=== PATIENT | female | born 1955 | race African-American/Black ===

== ENCOUNTER → 2016-09-11 | Outpatient (CLI) | payer BC ==
[2015-05-12 09:56] VITALS: BP 126/71
[~2016-09-11] MED LIST: ALBU8.5H6 IH; BECL8.7A6 IH; BISA10SU2 RC; CALC300T5 PO; CYCL-331 PO; DOCU-109 PO; FLUT12AE IH; IPRA4AER IH; LATA2.5D2 OP; LISI1TAB5 PO; NORT50CA PO; OMEP40CA5 PO; OXYC-323 PO; TETR15DR3 OP; TRAZ-90 PO
--- NOTE | 2016-09-11 08:31 | RAD ---
DATE: 09/11/2016 EXAM: DIGITAL SCREEN BILAT W/CAD HISTORY: Bilateral screening mammogram COMPARISON: 08/08/2015, 08/06/2014, 01/03/2011. This study was interpreted with the benefit of Computerized Aided Detection (CAD). The breast parenchyma shows scattered fibroglandular densities. Breast parenchyma level B. FINDINGS: No suspicious mass, calcification or architectural distortion to suggest malignancy. Cardiac pacing device in the medial left breast posterior depth. IMPRESSION: No mammographic evidence to suggest malignancy. BI-RADS 1, negative. Recommend routine screening mammogram in 12 months. BI-RADS CATEGORY: 1 NEGATIVE RECOMMENDED FOLLOW-UP: 12M 12 MONTH FOLLOW-UP PQRS compliance statement: Patient information was entered into a reminder system with a target due date September 2017 for the next mammogram. Mammography is a sensitive method for finding small breast cancers, but it does not detect them all and is not a substitute for careful clinical examination. A negative mammogram does not negate a clinically suspicious finding and should not result in delay in biopsying a clinically suspicious abnormality. "Our facility is accredited by the [employer] Mammography Program."
== END | disposition home or self-care (01) ==
LOC: MAMMO 07:55
PROVIDERS: ATTEND Specialist
DX: Z12.31 Encounter for screening mammogram for malignant neoplasm of breast (principal)
CPT/HCPCS: G0202; 77067

== ENCOUNTER 2019-02-07 21:47 | Emergency (ER) | payer BC ==
[~2019-02-07] VITALS: Ht 154.9 cm; Wt 75.7 kg
[~2019-02-07 21:47] MED LIST changes: -BISA10SU2 RC; +BISA10SU4 RC; +LISI1TAB19 PO; -LISI1TAB5 PO; +OMEP40CA45 PO; -OMEP40CA5 PO; -OXYC-323 PO; +OXYC1TAB15 PO; +TRAZ-86 PO; -TRAZ-90 PO
[2019-02-07] MEDS ORDERED: DOXY100C2 PO (22:12)
[2019-02-07] MEDS ORDERED: LATA2.5D2 OP (22:12)
[2019-02-07] MEDS ORDERED: AZMANEX (22:12)
[2019-02-07] MEDS ORDERED: MONT10TA80 PO (22:12)
--- NOTE | 2019-02-07 22:19 | PHYS DOC ---
Past History Past Medical History: Asthma, Fibromyalgia, Glaucoma, Hypertension, Other Past Surgical History: Hysterectomy Smoking: Non-smoker Alcohol Use: None Drug Use: None Adult General Chief Complaint Chief Complaint: GROIN PAIN [facility] HPI 63-year-old female presents with sudden onset left upper thigh/groin pain. The patient was sitting down about to take a breathing treatment for her bronchitis diagnosis when she began have a cramping pain in the left medial, upper thigh. She didn't think it was a big deal except that this pain has persisted for the last 6 hours. She tried Tylenol at home without relief. She denies any injury, fall, or overuse. She is less active than normal this week due to her bronchitis. She denies any other symptoms other than the discomfort. It is tender to palpation. Patient has a history of unprovoked PE a few years ago. She is not currently on any anticoagulation or antiplatelet. Review of Systems Review of Systems Constitutional: Denies fever or chills [] Eyes: Denies change in visual acuity, redness, or eye pain [] HENT: Denies nasal congestion or sore throat [] Respiratory: Denies cough or shortness of breath [] Cardiovascular: No additional information not addressed in HPI [] GI: Denies abdominal pain, nausea, vomiting, bloody stools or diarrhea [] : Denies dysuria or hematuria [] Musculoskeletal: Left groin pain[] Integument: Denies rash or skin lesions [] Neurologic: Denies headache, focal weakness or sensory changes [] Endocrine: Denies polyuria or polydipsia [] All other systems were reviewed and found to be within normal limits, except as documented in this note. Allergies Allergies Allergies Coded Allergies Type Severity Reaction Last Updated Verified Dcbdzfi-Xcb-Rtl Reductase Inhibitor Allergy Intermediate "muscle pain, cramping, & weakness" 02/07/19 Yes morphine Adverse Reaction Mild vomiting 02/07/19 Yes Physical Exam Physical Exam Constitutional: Well developed, well nourished, no acute distress, non-toxic appearance. [] HENT: Normocephalic, atraumatic, bilateral external ears normal, oropharynx moist, no oral exudates, nose normal. [] Eyes: PERRLA, EOMI, conjunctiva normal, no discharge. [] Neck: Normal range of motion, no tenderness, supple, no stridor. [] Cardiovascular:Heart rate regular rhythm, no murmur [] Lungs & Thorax: Bilateral breath sounds clear to auscultation [] Abdomen: Bowel sounds normal, soft, no tenderness, no masses, no pulsatile masses. [] Skin: Warm, dry, no erythema, no rash. [] Back: No tenderness, no CVA tenderness. [] Extremities: There is to palpation of the left, upper, medial thigh area. No obvious palpable mass. No skin changes. No erythema or ecchymosis.[] Neurologic: Alert and oriented X 3, normal motor function, normal sensory function, no focal deficits noted. [] Psychologic: Affect normal, judgement normal, mood normal. [] EKG EKG [] Radiology/Procedures Radiology/Procedures [] Impressions: Examination: VENOUS LOWER EXTREMITY LEFT History: Sudden onset left groin pain. History of pulmonary embolism. Comparison/Correlation: None FINDINGS: Left lower extremity duplex venous ultrasound exam was performed. Grayscale, color Doppler, and spectral Doppler imaging was performed. Compression and augmentation was performed. The left common femoral vein, superficial femoral vein, popliteal vein, and greater saphenous vein are normal with no evidence of deep venous thrombus. Normal compressibility and augmentation is evident. Visualized left calf veins are unremarkable. IMPRESSION: Normal left lower extremity duplex ultrasound exam. No evidence of deep venous thrombus involving the left lower extremity. Electronically signed by: Mick Mora MD (02/08/2019 12:08 AM) [id number] DICTATED AND SIGNED BY: MICK MORA MD DATE: 02/08/19 0008 CC: DOMO FITZGERALD DO; DONNA ARANDA MD ~ Course & Med Decision Making Course & Med Decision Making Pertinent Labs and Imaging studies reviewed. (See chart for details) The patient's labs are unremarkable. Her ultrasound is negative for DVT. There were no identified abnormalities by ultrasound in the area of question. Even though the patient can't think of any reason she would've strained a muscle, this seems most likely. I have advised supportive care and follow-up with her primary care physician if needed. She is stable for discharge at this time. [] Dragon Disclaimer Dragon Disclaimer This electronic medical record was generated, in whole or in part, using a voice recognition dictation system. Departure Departure: Impression: Primary Impression: Left groin pain Disposition: 01 HOME, SELF-CARE Condition: STABLE Referrals: DONNA ARANDA MD (PCP) Patient Instructions: DOMO Garcia DO Feb 07, 2019 22:19
[2019-02-08 00:03] LABS: BASO # 0.1 x10^3/uL (0.0-0.2); BASO % 1 % (0-3); EOS # 0.1 x10^3/uL (0.0-0.7); EOS % 2 % (0-3); HEMATOCRIT 34.4 % (36.0-47.0); HEMOGLOBIN 11.3 g/dL (12.0-15.5); LYMPH # 2.9 x10^3/uL (1.0-4.8); LYMPH % 47 % (24-48); MEAN CORPUSCULAR HEMOGLOBIN 28 pg (25-35); MEAN CORPUSCULAR HGB CONC 33 g/dL (31-37); MEAN CORPUSCULAR VOLUME 86 fL (79-100); MONO # 0.6 x10^3/uL (0.0-1.1); MONO % 9 % (0-9); NEUT # 2.6 x10^3uL (1.8-7.7); NEUT % 41 % (31-73); PLATELET COUNT 281 x10^3/uL (140-400); RED CELL DISTRIBUTION WIDTH 13.7 % (11.5-14.5); WHITE BLOOD COUNT 6.3 x10^3/uL (4.0-11.0)
[2019-02-08 00:09] LABS: CALCIUM 8.7 mg/dL (8.5-10.1); CREATININE 0.8 mg/dL (0.6-1.0); GFR 87.7; POTASSIUM 3.7 mmol/L (3.5-5.1)
--- NOTE | 2019-02-08 00:11 | RAD ---
Examination: VENOUS LOWER EXTREMITY LEFT History: Sudden onset left groin pain. History of pulmonary embolism. Comparison/Correlation: None FINDINGS: Left lower extremity duplex venous ultrasound exam was performed. Grayscale, color Doppler, and spectral Doppler imaging was performed. Compression and augmentation was performed. The left common femoral vein, superficial femoral vein, popliteal vein, and greater saphenous vein are normal with no evidence of deep venous thrombus. Normal compressibility and augmentation is evident. Visualized left calf veins are unremarkable. IMPRESSION: Normal left lower extremity duplex ultrasound exam. No evidence of deep venous thrombus involving the left lower extremity. Electronically signed by: Constantin Borges MD (02/08/2019 12:08 AM) [facility]
[2019-02-08 00:15] VITALS: BP 133/70
[2019-02-08 00:15] LABS: ALBUMIN 3.4 g/dL (3.4-5.0); ALBUMIN/GLOBULIN RATIO 0.9 (1.0-1.7); TOTAL BILIRUBIN 0.2 mg/dL (0.2-1.0); TOTAL PROTEIN 7.1 g/dL (6.4-8.2)
== END 2019-02-08 00:30 | disposition home or self-care (01) ==
LOC: ER 21:47
DX: R10.32 Left lower quadrant pain (principal); M79.652 Pain in left thigh; J45.909 Unspecified asthma, uncomplicated; M79.7 Fibromyalgia; I10 Essential (primary) hypertension; Z88.8 Allergy status to other drugs, medicaments and biological substances; Z88.5 Allergy status to narcotic agent
CPT/HCPCS: 36415; 80053; 85025; 85610; 85730; 93971; 99285

== ENCOUNTER → 2019-02-27 | Day surgery (SDC) | payer BC ==
[~2019-02-27] MED LIST changes: +ACETAMINOPHEN 325 MG TABLET PO PRN; +ALBU0.63 NEB; +ALBUTEROL SULFATE 2.5 MG/3 ML NEBU. NEB PRN; +ATROPINE 0.5 MG/5 ML DISP.SYRIN. IV PRN; +AZMANEX; +DOXY100C2 PO; +IV RINGERS SOLUTION,LACTATED 1,000 ML IV SCH; +MIDAZOLAM HCL PF 2 MG/2 ML VIAL. IV PRN; +MONT10TA80 PO; +ONDANSETRON PF 4 MG/2 ML VIAL. IV PRN; +PHENOL ORAL SPRAY 177ML BOTTLE. MM PRN; +PROPOFOL 40 ML IV ONE; +TRAZ-125 PO; -TRAZ-86 PO; +diphenhydrAMINE 50 MG/ML VIAL IV PRN
[2019-02-27 13:23] VITALS: BP 121/65
--- NOTE | 2019-03-03 16:06 | PATHOLOGY ---
[facility] Accession Number: [id number] . 01 Material submitted: . stomach - ANTRUM BIOPSY . 01 Clinical history: . Abdominal pain . 02 Diagnosis: Gastric biopsies, antrum: - Chronic gastritis, mild. . (JP:mm; 03/03/2019) [facility] 03/03/2019 1006 Local . 02 Comment: Sections of the gastric biopsy reveal segments of gastric antral and antral/body transition mucosa showing congestion and mild chronic inflammation. . A properly-controlled immunoperoxidase stain for Helicobacter is negative for Helicobacter organisms. . Special stain (A1): Immunoperoxidase stain for Helicobacter . (JPM:mml; 03/03/2019) . 02 Electronically signed: . Long Ruano MD, Pathologist NPI- [id number] . 01 Gross description: . The specimen is received in formalin, labeled "Jacqueline Dutta, antrum biopsy". Received are two segments of pale bhatt soft tissue ranging in size from 0.3 to 0.5 cm in maximum dimensions. The specimen is submitted entirely in cassette A1. ([facility]; 03/02/2019) [facility] 03/02/2019 1600 Local . 02 Pathologist provided ICD-10: K29.50 . 02 CPT . 566105, [id number] Specimen Comment: A courtesy copy of this report has been sent to [phone], [phone] Specimen Comment: [id number] Specimen Comment: Report sent to / DR ARANDA Performed at: 01 [facility] [address], [place], [place] [id number] MD Gopi Matamoros MD Phone: [phone] Performed at: 02 [facility] [address] [place], [place] [id number] MD Long Ruano MD Phone: [phone]
== END | disposition home or self-care (01) ==
LOC: SURG 10:10
PROVIDERS: ATTEND Internal Medicine Gastroenterology
DX: K21.0 Gastro-esophageal reflux disease with esophagitis (principal); K29.50 Unspecified chronic gastritis without bleeding; I10 Essential (primary) hypertension; J45.909 Unspecified asthma, uncomplicated; F41.9 Anxiety disorder, unspecified; Z87.39 Personal history of other diseases of the musculoskeletal system and connective tissue; Z90.710 Acquired absence of both cervix and uterus; Z90.49 Acquired absence of other specified parts of digestive tract; Z98.890 Other specified postprocedural states; Z88.8 Allergy status to other drugs, medicaments and biological substances; Z88.6 Allergy status to analgesic agent
CPT/HCPCS: 43239; 88305; 88342; J2704; J7120; 43450

== ENCOUNTER → 2019-03-05 | Outpatient (CLI) | payer BC ==
[2019-02-27 13:23] VITALS: BP 121/65
[~2019-03-05] MED LIST changes: -ACETAMINOPHEN 325 MG TABLET PO PRN; -ALBUTEROL SULFATE 2.5 MG/3 ML NEBU. NEB PRN; -ATROPINE 0.5 MG/5 ML DISP.SYRIN. IV PRN; -IV RINGERS SOLUTION,LACTATED 1,000 ML IV SCH; -MIDAZOLAM HCL PF 2 MG/2 ML VIAL. IV PRN; -ONDANSETRON PF 4 MG/2 ML VIAL. IV PRN; -PHENOL ORAL SPRAY 177ML BOTTLE. MM PRN; -PROPOFOL 40 ML IV ONE; -diphenhydrAMINE 50 MG/ML VIAL IV PRN
--- NOTE | 2019-03-05 08:38 | RAD ---
Complete abdominal ultrasound 03/05/2019 8:00 AM Indication: Abdominal pain Technique: Ultrasound examination of the abdomen was performed, and multiple static images were submitted for review. Comparison: Abdominal ultrasound July 09, 2013 Findings: The visualized portions of the pancreas are within normal limits. The visualized aorta and IVC are unremarkable. The gallbladder is surgically absent. The common bile duct measures 5 mm in diameter which is within normal limits. Liver is normal in size measuring 14 cm longitudinally. The liver is normal in echotexture. No intrahepatic biliary ductal dilatation is seen. No focal hepatic lesions are identified. The spleen is normal in appearance measuring 9 cm. Longitudinally The bilateral kidneys are normal in appearance without evidence of obstructive uropathy, nephrolithiasis, or focal renal lesion. Right kidney measures 8.7 cm in length. Left kidney measures 10.1 cm in length. Impression: 1. No sonographic evidence of acute intra-abdominal abnormality 2. Prior cholecystectomy Electronically signed by: Andrew Aguilar MD (03/05/2019 8:35 AM) [id number]
== END | disposition home or self-care (01) ==
LOC: US 07:42
PROVIDERS: ATTEND Internal Medicine Gastroenterology
DX: R10.13 Epigastric pain (principal); R11.0 Nausea; Z90.49 Acquired absence of other specified parts of digestive tract
CPT/HCPCS: 76700

== ENCOUNTER → 2019-10-14 | Outpatient (CLI) | payer BC ==
[2019-02-27 13:23] VITALS: BP 121/65
[~2019-10-14] MED LIST changes: -LISI1TAB19 PO; +LISI1TAB37 PO; -TETR15DR3 OP; +TETR15DR73 OP
--- NOTE | 2019-10-14 10:13 | RAD ---
Carotid doppler ultrasound History: Hypertension, dizziness, visual disturbance Multiple grayscale, color, and duplex spectral analysis waveform sonographic images were acquired of the carotid, subclavian, and vertebral arteries. Comparison: None Findings: RIGHT: PSV cm/sec EDV cm/sec Common carotid artery 67 20 Maximal internal carotid artery 156 44 External carotid artery 72 Vertebral artery 49 ICA/CCA ratio 2.3 LEFT: PSV cm/sec EDV cm/sec Common carotid artery 67 24 Maximum internal carotid artery 93 36 External carotid artery 59 Vertebral artery 104 ICA/CCA ratio 1.4 Velocities used to determine stenosis are known to correlate with NASCET angiographic criteria. There is antegrade flow in the bilateral vertebral arteries. There is mild plaque bilaterally. Impression: 1. Velocity elevation of the right internal carotid artery may be seen with 50-69% luminal diameter reduction, no evidence of a hemodynamically significant stenosis. There is mild plaque. Electronically signed by: Isaac Thompson MD (10/14/2019 10:10 AM) [id number]
--- NOTE | 2019-10-20 08:37 | RAD ---
DATE: 10/14/2019 9:05 AM EXAM: MAMMO KENNETH SCREENING BILATERAL HISTORY: Screening COMPARISON: 12/03/2018, 09/11/2016 Bilateral CC and MLO views of the breasts were performed. Bilateral breast tomosynthesis was performed in CC and MLO projections. This study was interpreted with the benefit of Computerized Aided Detection (CAD). FINDINGS: Breast Density: SCATTERED The breast parenchyma shows scattered fibroglandular densities. Breast parenchyma level B Event monitor in the medial left breast is redemonstrated. No suspicious masses, microcalcifications or architectural distortion is present to suggest malignancy in either breast. The visualized axillae are unremarkable. IMPRESSION: No mammographic evidence of malignancy. BI-RADS CATEGORY: 1 NEGATIVE RECOMMENDED FOLLOW-UP: 12M 12 MONTH FOLLOW-UP Annual screening mammography is recommended, unless clinically indicated sooner based on symptoms or change in physical exam. PQRS compliance statement: Patient information was entered into a reminder system with a target due date for the next mammogram. Mammography is a sensitive method for finding small breast cancers, but it does not detect them all and is not a substitute for careful clinical examination. A negative mammogram does not negate a clinically suspicious finding and should not result in delay in biopsying a clinically suspicious abnormality. "Our facility is accredited by the [employer] Mammography Program."
== END ==
LOC: MAMMO 09:04
PROVIDERS: ATTEND Specialist
DX: Z12.31 Encounter for screening mammogram for malignant neoplasm of breast (principal); H53.8 Other visual disturbances; I67.2 Cerebral atherosclerosis
CPT/HCPCS: 77063; 77067; 93880

== ENCOUNTER 2019-11-10 21:19 | Emergency (ER) | payer BC ==
[~2019-11-10] VITALS: Ht 154.9 cm; Wt 75.7 kg
[2019-11-10 21:25] VITALS: BP 167/71
[2019-11-10 22:20] LABS: BASO # 0.1 x10^3/uL (0.0-0.2); BASO % 1 % (0-3); EOS # 0.2 x10^3/uL (0.0-0.7); EOS % 2 % (0-3); HEMOGLOBIN 12.5 g/dL (12.0-15.5); LYMPH # 2.9 x10^3/uL (1.0-4.8); LYMPH % 40 % (24-48); MEAN CORPUSCULAR HEMOGLOBIN 29 pg (25-35); MEAN CORPUSCULAR HGB CONC 32 g/dL (31-37); MEAN CORPUSCULAR VOLUME 89 fL (79-100); MONO # 0.8 x10^3/uL (0.0-1.1); MONO % 11 % (0-9); NEUT # 3.4 x10^3uL (1.8-7.7); NEUT % 46 % (31-73); PLATELET COUNT 271 x10^3/uL (140-400); RED BLOOD COUNT 4.39 x10^6/uL (3.50-5.40); WHITE BLOOD COUNT 7.3 x10^3/uL (4.0-11.0)
--- NOTE | 2019-11-10 23:09 | EKG ---
[address] [address] Test Date: 2019-11-10 Test Time: 21:34:11 Pat Name: HENRIK MONTAGUE Department: Room: Gender: F [employer]: : 1955 Requested By: DOMO FITZGERALD Order Number: [id number] Reading MD: Pepe Faulkner Measurements Intervals [place] Rate: 79 P: 66 NH: 214 QRS: 67 QRSD: 84 T: 50 QT: 382 QTc: 444 Interpretive Statements SINUS RHYTHM NORMAL ECG Electronically Signed On 11-11-2019 12:24:32 CDT by Pepe Faulkner
[2019-11-10 23:10] LABS: CALCIUM 9.1 mg/dL (8.5-10.1); CREATININE 0.8 mg/dL (0.6-1.0); GFR 87.4; POTASSIUM 3.6 mmol/L (3.5-5.1)
[2019-11-10 23:17] LABS: ALBUMIN 3.7 g/dL (3.4-5.0); TOTAL BILIRUBIN 0.3 mg/dL (0.2-1.0); TOTAL PROTEIN 7.5 g/dL (6.4-8.2)
--- NOTE | 2019-11-11 00:21 | PHYS DOC ---
Past History Past Medical History: Fibromyalgia, Glaucoma, High Cholesterol, Hypertension Additional Past Medical Histor: gastroparesis Past Surgical History: Cholecystectomy, Hysterectomy, Other Additional Past Surgical Histo: LEFT EYE Smoking: Non-smoker Alcohol Use: Sober Drug Use: None General Adult EDM: Chief Complaint: Palpitations HPI: HPI: 64-year-old female presents with palpitations. She has been having palpitations intermittently for the last 3 days. They have been more persistent today and she was concerned so she came to the emergency room. She states that she has been feeling normal other than the palpitations. This evening she also developed some leg pain that she could not explain. It is her right lower leg. She denies fall or trauma. She denies fever or chills. The patient does not have any official diagnosis for these palpitations. Review of Systems: Review of Systems: Constitutional: Denies fever or chills Eyes: Denies change in visual acuity HENT: Denies nasal congestion or sore throat Respiratory: Denies cough or shortness of breath Cardiovascular: Palpitations. Denies chest pain or edema GI: Denies abdominal pain, nausea, vomiting, bloody stools or diarrhea : Denies dysuria Musculoskeletal: Right leg pain Integument: Denies rash Neurologic: Denies headache, focal weakness or sensory changes Endocrine: Denies polyuria or polydipsia Lymphatic: Denies swollen glands Psychiatric: Denies depression or anxiety Heart Score: Risk Factors: Risk Factors: DM, Current or recent (<one month) smoker, HTN, HLP, family history of CAD, obesity. Risk Scores: Score 0 - 3: 2.5% MACE over next 6 weeks - Discharge Home Score 4 - 6: 20.3% MACE over next 6 weeks - Admit for Clinical Observation Score 7 - 10: 72.7% MACE over next 6 weeks - Early Invasive Strategies Allergies: Allergies: Allergies Coded Allergies Type Severity Reaction Last Updated Verified Xqxyeux-Suq-Rlg Reductase Inhibitor Allergy Intermediate "muscle pain, cramping, & weakness" 02/07/19 Yes latex Allergy Mild itching, redness 02/27/19 Yes morphine Adverse Reaction Mild vomiting 02/07/19 Yes Physical Exam: PE: Constitutional: Well developed, well nourished, no acute distress, non-toxic appearance. [] HENT: Normocephalic, atraumatic, bilateral external ears normal, oropharynx moist, no oral exudates, nose normal. [] Eyes: PERRLA, EOMI, conjunctiva normal, no discharge. [] Neck: Normal range of motion, no tenderness, supple, no stridor. [] Cardiovascular: Heart rate regular rhythm, no murmur [] Lungs & Thorax: Bilateral breath sounds clear to auscultation [] Abdomen: Bowel sounds normal, soft, no tenderness, no masses, no pulsatile masses. [] Skin: Warm, dry, no erythema, no rash. [] Back: No tenderness, no CVA tenderness. [] Extremities: No tenderness, no cyanosis, no clubbing, ROM intact, no edema. [] Neurologic: Alert and oriented X 3, normal motor function, normal sensory function, no focal deficits noted. [] Psychologic: Affect normal, judgement normal, mood normal. [] Current Patient Data: Labs: Laboratory Tests Test 11/10/19 21:55 11/10/19 22:40 White Blood Count 7.3 x10^3/uL (4.0-11.0) Red Blood Count 4.39 x10^6/uL (3.50-5.40) Hemoglobin 12.5 g/dL (12.0-15.5) Hematocrit 39.0 % (36.0-47.0) Mean Corpuscular Volume 89 fL (79-100) Mean Corpuscular Hemoglobin 29 pg (25-35) Mean Corpuscular Hemoglobin Concent 32 g/dL (31-37) Red Cell Distribution Width 14.0 % (11.5-14.5) Platelet Count 271 x10^3/uL (140-400) Neutrophils (%) (Auto) 46 % (31-73) Lymphocytes (%) (Auto) 40 % (24-48) Monocytes (%) (Auto) 11 % (0-9) H Eosinophils (%) (Auto) 2 % (0-3) Basophils (%) (Auto) 1 % (0-3) Neutrophils # (Auto) 3.4 x10^3uL (1.8-7.7) Lymphocytes # (Auto) 2.9 x10^3/uL (1.0-4.8) Monocytes # (Auto) 0.8 x10^3/uL (0.0-1.1) Eosinophils # (Auto) 0.2 x10^3/uL (0.0-0.7) Basophils # (Auto) 0.1 x10^3/uL (0.0-0.2) Sodium Level 140 mmol/L (136-145) Potassium Level 3.6 mmol/L (3.5-5.1) Chloride Level 102 mmol/L (98-107) Carbon Dioxide Level 28 mmol/L (21-32) Anion Gap 10 (6-14) Blood Urea Nitrogen 22 mg/dL (7-20) H Creatinine 0.8 mg/dL (0.6-1.0) Estimated GFR (Cockcroft-Gault) 87.4 BUN/Creatinine Ratio 28 (6-20) H Glucose Level 115 mg/dL (70-99) H Calcium Level 9.1 mg/dL (8.5-10.1) Total Bilirubin 0.3 mg/dL (0.2-1.0) Aspartate Amino Transferase (AST) 27 U/L (15-37) Alanine Aminotransferase (ALT) 47 U/L (14-59) Alkaline Phosphatase 80 U/L (46-116) Troponin I Quantitative < 0.017 ng/mL (0-0.055) Total Protein 7.5 g/dL (6.4-8.2) Albumin 3.7 g/dL (3.4-5.0) Albumin/Globulin Ratio 1.0 (1.0-1.7) Vital Signs: Vital Signs Date Time Temp Pulse Resp B/P (MAP) Pulse Ox O2 Delivery O2 Flow Rate FiO2 11/10/19 21:25 98.4 72 20 167/71 (103) 99 Room Air EKG: EKG: [] Radiology/Procedures: Radiology/Procedures: [] Course & Med Decision Making: Course & Med Decision Making Pertinent Labs and Imaging studies reviewed. (See chart for details) The patient has had no further palpitations in the emergency room. Her labs are unremarkable. Her EKG is unremarkable. Her troponin is negative. I do not see any obvious cause for her leg pain. The patient is stable for discharge at this time. She will follow-up with her primary care physician as needed. [] Dragon Disclaimer: Dragon Disclaimer: This electronic medical record was generated, in whole or in part, using a voice recognition dictation system. Departure Departure: Impression: Primary Impression: Palpitations Additional Impression: Pain in right lower leg Disposition: HOME/RESIDENCE PRIOR TO ADM Condition: STABLE Referrals: DONNA ARANDA MD (PCP) Patient Instructions: Palpitations, [id number]-[id number] Justification of Admission: Justification of Admission: Justification of Admission Dx: N/A DOMO FITZGERALD DO Nov 11, 2019 00:21
--- NOTE | 2019-11-13 14:39 | NUR ---
IP: notified patient of COVID result.
== END 2019-11-11 00:35 | disposition home or self-care (01) ==
LOC: ER 21:19
DX: R00.2 Palpitations (principal); M79.604 Pain in right leg; M79.7 Fibromyalgia; E78.5 Hyperlipidemia, unspecified; I10 Essential (primary) hypertension; Z91.040 Latex allergy status; Z88.5 Allergy status to narcotic agent; Z88.8 Allergy status to other drugs, medicaments and biological substances; Z20.828 Contact with and (suspected) exposure to other viral communicable diseases
CPT/HCPCS: 36415; 80053; 84484; 85025; 93005; 99284; U0003

== ENCOUNTER 2020-01-13 08:43 | Inpatient (IN) | payer BC ==
[~2020-01-13] VITALS: Ht 154.9 cm; Wt 76.3 kg
[~2020-01-13 08:43] MED LIST changes: +LATA2.5D2 OU
--- NOTE | 2020-01-13 09:09 | PHYS DOC ---
Past History Past Medical History: Asthma, Fibromyalgia, Glaucoma, High Cholesterol, Hypertension Additional Past Medical Histor: gastroparesis Past Surgical History: Cholecystectomy, Hysterectomy, Other Additional Past Surgical Histo: LEFT EYE Smoking: Non-smoker Alcohol Use: None Drug Use: None General Adult EDM: Chief Complaint: CHEST PAIN HPI: HPI: Patient is a 64 year old female who presents with chest tightness for past 3 days. Reports palpitations, sweats, headache, left UE tightness. Denies pain, SOA, fever, dizziness. Patient states her pulse was 165 at home. PMH of hyperthyroidism in college, "electric cardioblock", "mild blockage in neck", fibromyalgia. Review of Systems: Review of Systems: Constitutional: Denies fever or chills Eyes: Denies redness or eye pain HENT: Denies nasal congestion or sore throat Respiratory: Denies cough or shortness of breath Cardiovascular: Denies chest pain. Reports palpitations, chest tightness. GI: Denies abdominal pain, nausea, or vomiting : Denies dysuria or hematuria Musculoskeletal: Denies back pain or joint pain Integument: Denies rash or skin lesions Neurologic: Denies headache, focal weakness or sensory changes Complete systems were reviewed and found to be within normal limits, except as documented in this note. This Current Medications: Current Meds: Current Medications Medications (Trade) Dose Ordered Sig/Puja Start Time Stop Time Status Last Admin Dose Admin Sodium Chloride 1,000 ml @ 1,000 mls/hr 1X ONCE 01/13/20 09:15 01/13/20 10:14 UNV Allergies: Allergies: Allergies Coded Allergies Type Severity Reaction Last Updated Verified Gdglscp-Mcf-Ulp Reductase Inhibitor Allergy Intermediate "muscle pain, cramping, & weakness" 02/07/19 Yes latex Allergy Mild itching, redness 02/27/19 Yes morphine Adverse Reaction Mild vomiting 02/07/19 Yes Physical Exam: PE: Constitutional: Well developed, well nourished, no acute distress, non-toxic appearance HENT: Normocephalic, atraumatic Eyes: Conjunctiva normal, no discharge Neck: Normal range of motion, no tenderness, supple Lungs & Thorax: No respiratory distress, equal chest rise and fall Abdomen: Soft, no tenderness Skin: Warm, dry, no erythema, no rash Back: No tenderness, no CVA tenderness Extremities: No tenderness, ROM intact, no edema Neurologic: Alert and oriented X 3, normal motor function, normal sensory fu nction, no focal deficits noted Psychologic: Affect normal, judgment normal Current Patient Data: Vital Signs: Vital Signs Date Time Temp Pulse Resp B/P (MAP) Pulse Ox O2 Delivery O2 Flow Rate FiO2 01/13/20 08:45 97.9 90 16 134/69 (90) 98 Room Air EKG: EKG: @0850 sinus tachycardia at 103 bpm, right bundle branch block, no ST segment elevation, QRS 120 ms, QT/QTc 356/468 ms. Radiology/Procedures: Radiology/Procedures: PROCEDURE: CHEST AP ONLY Single view of the chest. 01/13/2020 10:14 AM Indication: Reason: chest pain / Spl. Instructions: / History: Comparison: Chest radiograph January 16, 2015. Findings: Cardiac monitoring device noted. Heart size is normal no focal infiltrate is seen. There is an approximately 1 cm nodular opacity in the right midlung. This could be artifactual or related to true pulmonary nodule. Consider CT evaluation. No pneumothorax or effusion is seen. No acute osseous abnormalities are seen. Impression: . 1. Approximately 1 cm nodular opacity, right midlung. This could be artifactual represent a true pulmonary nodule. Follow-up CT chest recommended. 2. No other acute cardiopulmonary process is identified Electronically signed by: Andrew Aguilar MD (01/13/2020 10:46 AM) [id number] Heart Score: HEART Score for Chest Pain: HEART Score for Chest Pain Response (Comments) Value History Moderately Suspicious 1 ECG Normal 0 Age >45 - < 65 1 Risk Factors 1 or 2 Risk Factors 1 Troponin < Normal Limit 0 Total 3 Risk Factors: Risk Factors: DM, Current or recent (<one month) smoker, HTN, HLP, family history of CAD, obesity. Risk Scores: Score 0 - 3: 2.5% MACE over next 6 weeks - Discharge Home Score 4 - 6: 20.3% MACE over next 6 weeks - Admit for Clinical Observation Score 7 - 10: 72.7% MACE over next 6 weeks - Early Invasive Strategies Course & Med Decision Making: Course & Med Decision Making Patient is a 64 year old female who presents with chest tightness for past 3 days. Reports palpitations, sweats, headache, left UE tightness. Heart score. Patient reports continued pain, therefore, patient requires observation admission. Pertinent Labs and Imaging studies reviewed. (See chart for details) Dragon Disclaimer: Dragon Disclaimer: This electronic medical record was generated, in whole or in part, using a voice recognition dictation system. Departure Departure: Impression: Primary Impression: Chest pain Qualified Codes: R07.9 - Chest pain, unspecified Disposition: 09 ADMITTED INPT THIS HOSP Admitting Physician: Nacho Harvey Condition: STABLE Referrals: DONNA ARANDA MD (PCP) NINOSKA WHITEHEAD DO Jan 13, 2020 09:09
--- NOTE | 2020-01-13 09:12 | EKG ---
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
[2020-01-13] MEDS ORDERED: IV NORMAL SALINE 1,000ML 1,000 ML IV ONE (09:15)
[2020-01-13 09:16] LABS: BASO # 0.1 x10^3/uL (0.0-0.2); BASO % 1 % (0-3); EOS # 0.2 x10^3/uL (0.0-0.7); EOS % 2 % (0-3); HEMATOCRIT 38.8 % (36.0-47.0); HEMOGLOBIN 12.7 g/dL (12.0-15.5); LYMPH # 2.6 x10^3/uL (1.0-4.8); LYMPH % 38 % (24-48); MEAN CORPUSCULAR HEMOGLOBIN 28 pg (25-35); MEAN CORPUSCULAR HGB CONC 33 g/dL (31-37); MEAN CORPUSCULAR VOLUME 87 fL (79-100); MONO # 0.7 x10^3/uL (0.0-1.1); MONO % 10 % (0-9); NEUT # 3.5 x10^3uL (1.8-7.7); NEUT % 50 % (31-73); PLATELET COUNT 312 x10^3/uL (140-400); RED BLOOD COUNT 4.45 x10^6/uL (3.50-5.40); RED CELL DISTRIBUTION WIDTH 13.6 % (11.5-14.5)
[2020-01-13 09:21] LABS: CREATININE 0.9 mg/dL (0.6-1.0); GFR 76.3; POTASSIUM 3.8 mmol/L (3.5-5.1)
[2020-01-13 09:37] LABS: ALBUMIN 3.8 g/dL (3.4-5.0); ALBUMIN/GLOBULIN RATIO 0.9 (1.0-1.7); MAGNESIUM 2.3 mg/dL (1.8-2.4); TOTAL BILIRUBIN 0.2 mg/dL (0.2-1.0); TOTAL PROTEIN 8.2 g/dL (6.4-8.2)
[2020-01-13] MEDS ORDERED: ASPIRIN ENTERIC COATED 325 MG TABLET.DR. PO ONE (09:45)
--- NOTE | 2020-01-13 10:49 | RAD ---
Single view of the chest. 01/13/2020 10:14 AM Indication: Reason: chest pain / Spl. Instructions: / History: Comparison: Chest radiograph January 16, 2015. Findings: Cardiac monitoring device noted. Heart size is normal no focal infiltrate is seen. There is an approximately 1 cm nodular opacity in the right midlung. This could be artifactual or related to true pulmonary nodule. Consider CT evaluation. No pneumothorax or effusion is seen. No acute osseous abnormalities are seen. Impression: . 1. Approximately 1 cm nodular opacity, right midlung. This could be artifactual represent a true pulmonary nodule. Follow-up CT chest recommended. 2. No other acute cardiopulmonary process is identified Electronically signed by: Andrew Aguilar MD (01/13/2020 10:46 AM) [id number]
--- NOTE | 2020-01-13 12:46 | NUR ---
ADMISSION NOTE-Pt arrives via cart with EMS from ED. She is A&O, moves independently from cart to bed. Tele initiated, VS assessed. Inventory completed by DIRECTOR OF MANUFACTURING OPERATIONS.
[2020-01-13 12:58] VITALS: BP 154/82
[2020-01-13 13:16] LABS: FREE T4 0.88 ng/dL (0.76-1.46); THYROID STIM HORMONE (TSH) 2.91 uIU/mL (0.358-3.740)
[2020-01-13 16:16] VITALS: BP 132/75
--- NOTE | 2020-01-13 16:34 | HP ---
ADMIT DATE: 01/13/2020 HISTORY OF PRESENT ILLNESS: The patient is a 64-year-old -Citizen Of [place] female patient who came to the Emergency Room with a complaint of chest pain that she describes as chest tightness that started about 3 days ago. She also reports palpitation, diaphoresis, headache and left upper extremity tightness. Denied any nausea or vomiting. Denied any shortness of breath. She stated that her heart rate was high, about 165 at home. She apparently awakened from sleep at 3:00 this morning because of the pain that she rated about 7/10; however, the pain waxes and wanes. She was extensively investigated in the Emergency Room, had had an EKG that showed that she was in sinus tachycardia with a heart rate of 103 beats per minute with right bundle-branch block; no ST segment elevation and QRS duration was 120 milliseconds and corrected QT interval was 468 milliseconds. She has had a chest x-ray, which showed approximately 1 cm nodular opacity in the right mid lung. This could be artifactual representing a true pulmonary nodule. Followup CT scan recommended. No other acute cardiopulmonary process identified. She has cardiac monitoring device noted; heart size is normal; no focal infiltrate is seen. There is an approximately 1 cm nodular opacity in the right mid lung; however, there is no pneumothorax or pleural effusion. She has had lab work, which showed that she has no leukocytosis and her first set of cardiac enzymes showed troponin to be less than 0.017. Her TSH was 2.910. Her free T4 was 0.88 ng/dL, which is well within normal range; however, free T3 was 2.11, which is below the lower limit of normal. The patient was admitted to do 2 more sets of cardiac enzymes, check her fasting lipid profile and consult the Cardiology team. PAST MEDICAL HISTORY: Significant for recurrent syncopal episode for which she has an event monitor. She has history of gastroparesis, hypertension, hyperlipidemia. Apparently, she has what seemed to be subacute thyroiditis, bronchial asthma and she has had also generalized osteoarthritis, fibromyalgia. She has had 2 stress tests before and underwent left heart catheterization in 2018 that apparently was normal. She was admitted for pneumonia in 2004, 2008 and 2011; however, she never required intubation and mechanical ventilation. PAST SURGICAL HISTORY: Significant for right tibial and fibular fractures, status post open reduction and internal fixation; total abdominal hysterectomy, bilateral salpingo-oophorectomy, enucleation of her left eye, cholecystectomy, esophagogastroduodenoscopy as well as colonoscopy. ALLERGIES: SHE IS ALLERGIC TO STATINS, LATEX AND MORPHINE. MEDICATIONS: She is currently on following medications: She is on albuterol sulfate 1 puff every 6 hours. She is also on nebulizer 4 times a day, lisinopril/hydrochlorothiazide 20/12.5 one tablet once a day, Singulair 10 mg once a day, latanoprost 1 drop to the right eye at bedtime. She is on omeprazole 40 mg daily and Asmanex inhaler. FAMILY HISTORY: She has 1 older brother that has coronary artery disease, status post coronary artery bypass graft surgery. Her sister is older and is known to have congestive heart failure, type 2 diabetes mellitus and chronic kidney disease. Her younger brother also has diabetes and what seems to be congestive heart failure. Her father at age of 65 due to complication of alcoholic liver cirrhosis. Mother at the age of 42 because of intracerebral hemorrhage. SOCIAL HISTORY: She is , has 1 son and 3 daughters. She never smoked, quit drinking alcohol about 7 years ago. She does not use any drugs. 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 REVIEW OF SYSTEMS: The patient has glaucoma and cataract in her right eye. She is blind in her left eye. She does have recurrent bouts of it. Denied any earache, tinnitus or sensorineural deafness. Denied any nosebleeds, stuffy nose or postnasal drip. Denied any sore throat, sore tongue, toothache, hoarseness of voice or difficulty swallowing. Does complain of nausea due to gastroparesis and she did that with clear liquid diet. Denied any diarrhea or constipation. Denied any hematemesis, melena, or hematochezia. Denied any dysuria, frequency or hematuria. Denied any shortness of breath, orthopnea or paroxysmal nocturnal dyspnea. Denied any cough, phlegm or hemoptysis. PHYSICAL EXAMINATION: GENERAL: On arrival to the Emergency Room, she apparently looked well and was clearly in no apparent respiratory distress. No pallor, jaundice or cyanosis. No lymphadenopathy, no thyromegaly. No jugular venous distention. No limb edema. VITAL SIGNS: Her heart rate was 90, blood pressure was 134/69, temperature was 97.9, respiratory rate was 16, and oxygen saturation was 98% on room air. HEAD, EYES, EARS, NOSE AND THROAT: Showed normocephalic, atraumatic. NECK: Supple. HEART: Normal first and second heart sounds with no gallop, rub or murmur. CHEST: Clear to auscultation. No crepitation or rhonchi. ABDOMEN: Distended, soft, nontender. 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 Otherwise, she is grossly intact. LABORATORY DATA: Her lab work on arrival showed a white cell count 7000, hemoglobin 12.7, hematocrit 38.8, MCV 87 and platelet count of 312,000 with normal manual differential. Her chemistry showed a serum sodium 137, potassium 3.8, chloride 101, bicarbonate 29, anion gap of 7, BUN 20, creatinine of 0.9, estimated GFR was 76 mL per minute. Her glucose 115, calcium was 9, magnesium was 2.3. Total bilirubin, AST, ALT, alkaline phosphatase were normal. Her troponin was less than 0.07 and her total protein 8.2, albumin was 3.8. Serum lipase was 150. TSH and free T4 were normal. Free T3 was slightly below the lower limit of normal. Her prothrombin time, INR as well as aPTT were normal. D-dimer was less than 0.19. Her chest x-ray showed approximately 1 cm nodular opacity, right mid lung. This could be artifactual, represents a true pulmonary nodule. No other acute cardiopulmonary process identified. ASSESSMENT AND PLAN: The patient was admitted with somewhat atypical chest pain. We will do 1 more set of cardiac enzyme, check her fasting lipid profile tomorrow morning and consult the Cardiology team for further evaluation and treatment. KARSON VIDAL MD DR: LD/krysten JOB#: [id number] / [id number]
[2020-01-13 19:49] VITALS: BP 119/80
[2020-01-13] MEDS ORDERED: ALBUTEROL SULFATE 8GM INHALER. IH PRN (20:15)
[2020-01-13] MEDS ORDERED: ALBUTEROL SULFATE 2.5 MG/3 ML NEBU. NEB PRN (20:30)
[2020-01-13] MEDS ORDERED: MONTELUKAST 10 MG TABLET. PO SCH (21:00)
[2020-01-13] MEDS ORDERED: LATANOPROST 0.005% OPHTH SOLUTION 2.5ML BOTTLE. OU SCH (21:00)
[2020-01-13 22:51] VITALS: BP 102/64
--- NOTE | 2020-01-14 03:26 | NUR ---
Pt reported continued chest tightness at beginning of shift, describes as band tightening across lower chest/upper abdomen, rates 4:10. PRN fentanyl given with good results. Pt able to rest comfortably through much of the night. Pt on telemetry, showing sinus rhythm with BBB. Rate in the 60's.
[2020-01-14 05:23] VITALS: BP 115/71
[2020-01-14 06:51] LABS: ALBUMIN 3.2 g/dL (3.4-5.0); ALBUMIN/GLOBULIN RATIO 0.9 (1.0-1.7); CALCIUM 8.3 mg/dL (8.5-10.1); CREATININE 0.7 mg/dL (0.6-1.0); GFR 101.9; POTASSIUM 3.9 mmol/L (3.5-5.1); TOTAL BILIRUBIN 0.2 mg/dL (0.2-1.0); TOTAL PROTEIN 6.9 g/dL (6.4-8.2)
--- NOTE | 2020-01-14 08:42 | PDOC2 ---
CARDIAC CONSULT DATE OF CONSULT DOS: DATE: 01/14/20 TIME: 08:38 REASON FOR CONSULT Reason for Consult Chest pain REFERRING PHYSICIAN Referring Physician Dr. Harvey SOURCE Source: Chart review, Patient HPI History of Present Illness This is a 64 yo female who presented secondary to chest and back pain. Patient reports having pressure in her mid back for the last 3 days. Pain radiates are to her front side. [place] slightly nauseated and noticed some palpitations so she came to the ED for further evaluation and treatment. Patient is feeling better this am and is wanting to go home. PAST MEDICAL HISTORY Cardiovascular: HTN, hyperipidemia, Other (syncope s/p ILR) CENTRAL NERVOUS SYSTEM: Periperal neuropathy GI: GERD Psych: Depression Musculoskeletal: Osteoarthritis Rheumatologic: Fibromyalgia PAST SURGICAL HISTORY Past Surgical History: Cataract Removal, Hysterectomy FAMILY HISTORY Family History: Heart Disease, Hypertension SOCIAL HISTORY Smoke: No ALCOHOL: none Drugs: None CURRENT MEDICATIONS Current Medications Current Medications Sodium Chloride 1,000 ml @ 1,000 mls/hr 1X ONCE IV Last administered on 01/13/20at 09:52; Start 01/13/20 at 09:15; Stop 01/13/20 at 10:14; Status DC Fentanyl Citrate (Fentanyl 2ml Vial) 50 mcg 1X ONCE IV Last administered on 01/13/20at 09:52; Start 01/13/20 at 09:45; Stop 01/13/20 at 09:48; Status DC Aspirin (Aspirin Enteric Coated) 325 mg 1X ONCE PO Last administered on 01/13/20at 09:51; Start 01/13/20 at 09:45; Stop 01/13/20 at 09:48; Status DC Fentanyl Citrate (Fentanyl 2ml Vial) 50 mcg PRN Q2HR PRN IVP PAIN Last administered on 01/13/20at 21:28; Start 01/13/20 at 11:00 Albuterol Sulfate (Ventolin Hfa Inhaler) 1 puff Q6HRS PRN IH WH; Start 01/13/20 at 20:15; Stop 01/13/20 at 20:24; Status DC Latanoprost (Xalatan) 1 drop QHS OU Last administered on 01/13/20at 21:19; Start 01/13/20 at 21:00 Montelukast Sodium (Singulair) 10 mg HS PO Last administered on 01/13/20at 21:19; Start 01/13/20 at 21:00 Albuterol Sulfate (Ventolin) 2.5 mg PRN Q6HRS PRN NEB SHORTNESS OF BREATH Last administered on 01/14/20at 06:17; Start 01/13/20 at 20:30 Non-Formulary Medication (Lisinopril/ Hydrochlorothiazide (Lisinopril-Hctz 20- 12.5 Mg Tab)) 1 each DAILY PO ; Start 01/14/20 at 09:00; Status UNV Non-Formulary Medication (Omeprazole ) 40 mg DAILY PO ; Start 01/14/20 at 09:00; Status UNV Active Scripts Active Reported Albuterol Sulfate Neb Soln (Albuterol Sulfate) 0.63 Mg/3 Ml Vial.neb 1 Vial NEB QID [azmanex] Montelukast Sodium Tablet (Montelukast Sodium) 10 Mg Tablet 10 Mg PO HS Xalatan (Latanoprost) 2.5 Ml Drops 1 Drop OU QHS Omeprazole 40 Mg Capsule.dr 40 Mg PO DAILY Albuterol Sulfate Hfa Inhaler (Albuterol Sulfate) 8.5 Gm Hfa.aer.ad 1 Puff IH Q6HRS PRN Lisinopril-Hctz 20-12.5 Mg Tab (Lisinopril/Hydrochlorothiazide) 1 Each Tablet 1 Each PO DAILY ALLERGIES Allergies: Coded Allergies: Nsmhbah-Rko-Krr Reductase Inhibitor (Verified Allergy, Intermediate, "muscle pain, cramping, & weakness", 02/07/19) latex (Verified Allergy, Mild, itching, redness, 02/27/19) morphine (Verified Adverse Reaction, Mild, vomiting, 02/07/19) "It makes me vomit really bad, so I need a lot of nausea medicine." ROS Review of Systems 14 point ROS conducted with pertinent positives noted above in hPI PHYSICAL EXAM General: Alert, Oriented X3, Cooperative, No acute distress HEENT: Atraumatic, Mucous membr. moist/pink Lungs: Clear to auscultation Heart: Regular rate, Normal S1, Normal S2 Abdomen: Soft, No tenderness Extremities: No edema, Normal pulses Skin: No rashes, No breakdown Neuro: Normal speech, Sensation intact Psych/Mental Status: Mental status NL, Mood NL MUSCULOSKELETAL: Osteoarthritic changes both hands VITALS Vital Signs Vital Signs Date Time Temp Pulse Resp B/P (MAP) Pulse Ox O2 Delivery O2 Flow Rate FiO2 01/14/20 06:19 99 Room Air 01/14/20 05:23 97.9 79 18 115/71 (86) LABS LABS Laboratory Tests Test 01/13/20 08:53 01/13/20 13:07 01/13/20 20:01 01/14/20 06:10 White Blood Count 7.0 x10^3/uL (4.0-11.0) Red Blood Count 4.45 x10^6/uL (3.50-5.40) Hemoglobin 12.7 g/dL (12.0-15.5) Hematocrit 38.8 % (36.0-47.0) Mean Corpuscular Volume 87 fL (79-100) Mean Corpuscular Hemoglobin 28 pg (25-35) Mean Corpuscular Hemoglobin Concent 33 g/dL (31-37) Red Cell Distribution Width 13.6 % (11.5-14.5) Platelet Count 312 x10^3/uL (140-400) Neutrophils (%) (Auto) 50 % (31-73) Lymphocytes (%) (Auto) 38 % (24-48) Monocytes (%) (Auto) 10 % (0-9) Eosinophils (%) (Auto) 2 % (0-3) Basophils (%) (Auto) 1 % (0-3) Neutrophils # (Auto) 3.5 x10^3uL (1.8-7.7) Lymphocytes # (Auto) 2.6 x10^3/uL (1.0-4.8) Monocytes # (Auto) 0.7 x10^3/uL (0.0-1.1) Eosinophils # (Auto) 0.2 x10^3/uL (0.0-0.7) Basophils # (Auto) 0.1 x10^3/uL (0.0-0.2) Prothrombin Time 10.1 SEC (9.4-11.4) Prothromb Time International Ratio 1.0 (0.9-1.1) Activated Partial Thromboplast Time 27 SEC (23-33) D-Dimer ([place]) < 0.19 mg/L (0.00-0.50) Sodium Level 137 mmol/L (136-145) 139 mmol/L (136-145) Potassium Level 3.8 mmol/L (3.5-5.1) 3.9 mmol/L (3.5-5.1) Chloride Level 101 mmol/L (98-107) 105 mmol/L (98-107) Carbon Dioxide Level 29 mmol/L (21-32) 27 mmol/L (21-32) Anion Gap 7 (6-14) 7 (6-14) Blood Urea Nitrogen 20 mg/dL (7-20) 14 mg/dL (7-20) Creatinine 0.9 mg/dL (0.6-1.0) 0.7 mg/dL (0.6-1.0) Estimated GFR (Cockcroft-Gault) 76.3 101.9 BUN/Creatinine Ratio 22 (6-20) 20 (6-20) Glucose Level 115 mg/dL (70-99) 106 mg/dL (70-99) Calcium Level 9.0 mg/dL (8.5-10.1) 8.3 mg/dL (8.5-10.1) Magnesium Level 2.3 mg/dL (1.8-2.4) Total Bilirubin 0.2 mg/dL (0.2-1.0) 0.2 mg/dL (0.2-1.0) Aspartate Amino Transf (AST/SGOT) 17 U/L (15-37) 15 U/L (15-37) Alanine Aminotransferase (ALT/SGPT) 37 U/L (14-59) 29 U/L (14-59) Alkaline Phosphatase 85 U/L (46-116) 66 U/L (46-116) Creatine Kinase 163 U/L (26-192) Creatine Kinase MB (Mass) 0.7 ng/mL (0.0-3.6) Creatine Kinase MB Relative Index 0.4 % (0-4) Troponin I Quantitative < 0.017 ng/mL (0-0.055) < 0.017 ng/mL (0-0.055) < 0.017 ng/mL (0-0.055) YU-Vnd-S-Type Natriuretic Peptide 10 pg/mL (0-124) Total Protein 8.2 g/dL (6.4-8.2) 6.9 g/dL (6.4-8.2) Albumin 3.8 g/dL (3.4-5.0) 3.2 g/dL (3.4-5.0) Albumin/Globulin Ratio 0.9 (1.0-1.7) 0.9 (1.0-1.7) Lipase 150 U/L (73-393) Thyroid Stimulating Hormone (TSH) 2.910 uIU/mL (0.358-3.740) Free Thyroxine 0.88 ng/dL (0.76-1.46) Free Triiodothyronine (T3) pg/mL 2.11 pg/mL (2.18-3.98) ECHOCARDIOGRAM Echocardiogram <Conclusion> Technically difficult study. Left ventricle systolic function is normal. The Ejection Fraction is estimated at 60-65%. There is normal LV segmental wall motion. There is borderline concentric left ventricular hypertrophy. Transmitral Doppler flow pattern is Grade I-abnormal relaxation pattern. Valves not well visualized but appears to be trace tricuspid regurgitation. There is no evidence of significant pericardial effusion. DATE: 01/28/14 1725 HEART CATH Heart Cath FINDINGS: 1. Hemodynamics: Slightly elevated left ventricular end-diastolic pressure of 19 mmHg. No pullback gradient across the aortic valve. 2. Left ventriculography: Normal left ventricle systolic function with ejection fraction estimated at 60-65%. No significant mitral regurgitation seen. 3. Coronary angiography: A). The left main coronary artery arose from the left sinus of Valsalva, gave risks of the left anterior descending and left circumflex arteries and did not show any significant stenosis. B). The left anterior descending artery did not show any significant stenosis. C). The left circumflex artery did not show any significant stenosis. D). The right coronary artery was a large and dominant vessel arising from the right sinus of Valsalva that did not show any significant stenosis. Conclusion 1. Normal coronary arteries 2. Normal left ventricle systolic function with ejection fraction estimated at 60-65% 3. No significant mitral regurgitation or aortic stenosis DATE: 09/09/13 1624 ASSESSMENT/PLAN Assessment/Plan 1. Chest pain, atypical; AMI ruled out. EKG with RBBB, t-wave inversion of V1- V3. Cath 2014 with normal coronaries 2. Palpitations; resolved. No acute events noted on tele. Patient reports recent event monitor through PCP. Has not received results from this 2. Hypertension; controlled 3. Hyperlipidemia; LDL 127. Allergy to statin 4. H/o syncope; s/p [employer] loop recorder placement in 07/2015. Battery . Needs explanted. Has been following with Dr. Giles in [place] due to insurance coverage. Previously followed with Dr. Faulkner 5. Fibromyalgia 6. GERD Recommendations Add ASA Will arrange outpatient echo and ischemic evaluation with stress test here at [facility] Obtain recent event monitor results through PCP Patient would prefer to follow up with Dr. Faulkner her in [place]. WENDI BANKS APRN Jan 14, 2020 08:42
[2020-01-14] MEDS ORDERED: LISINOPRIL 20 MG TABLET PO SCH (09:00)
[2020-01-14] MEDS ORDERED: hydroCHLOROthiazide 25 MG TABLET PO SCH (09:00)
[2020-01-14] MEDS ORDERED: ASPIRIN ENTERIC COATED 81 MG TABLET.DR. PO SCH (09:30)
[2020-01-14 11:13] VITALS: BP 112/70
[2020-01-14] MEDS ORDERED: ASPI325T8 PO (14:34)
--- NOTE | 2020-01-14 14:48 | NUR ---
PATIENT IS DISCHARGED HOME. FOLLOW UP AMARI AND DISCHARGED INSTRUCTIONS REVIEWED , PATIENT VERBALIZED UNDERSTANDING. PATIENT LEFT ROOM VIA AMB ACCOMPANIED BY SELF. PATIENT TAKEN HOME BY FAMILY MEMBER VIA PERSONAL VEHICLE.
--- NOTE | 2020-01-14 22:06 | DS ---
DATE OF DISCHARGE: 01/14/2020 HOSPITAL COURSE: The patient is a 64-year-old -[place] female patient who was admitted with somewhat atypical chest pain. She has had 3 sets of cardiac enzymes that ruled out myocardial infarction. She has had fasting lipid profile, which showed her serum triglycerides were 45, total cholesterol 197, LDL cholesterol was high at 128, VLDL was 9, and HDL was 60, the ratio was 3. Unfortunately, she is allergic to STATINS. She was seen in consultation by the Cardiology team and they recommended basically outpatient echo and ischemic evaluation with stress test and to obtain recent event monitoring results from her PCP. An appointment was made for her to be followed by Dr. Faulkner here in the Cardiology office in [place] and as she remained chest pain free, hemodynamically stable, a decision was made to be discharged home. PHYSICAL EXAMINATION: GENERAL: When I saw her this afternoon, she was sitting at the edge of the bed comfortably in no apparent respiratory distress. No pallor, jaundice, cyanosis or thyromegaly. No jugular venous distention. No limb edema. VITAL SIGNS: Her heart rate was 86, blood pressure was 112/70, temperature was 97.9, respiratory rate was 18 and oxygen saturation was 98%. The rest of clinical exam is stable. LABORATORY DATA: This morning showed a serum sodium 139, potassium 3.9, chloride 106, bicarbonate 27, anion gap of 7, BUN 14, creatinine 0.7, estimated GFR was 101 mL per minute. Her glucose 106, calcium was 8.3. Total bilirubin, AST, ALT, alkaline phosphatase were normal. Her total protein 6.9, albumin 3.2. Serum triglycerides were 45, total cholesterol 197, VLDL was 128, HDL cholesterol was 60 and the ratio was 3. DISCHARGE MEDICATIONS: She was discharged home to continue on aspirin 325 mg once a day, albuterol sulfate 1 puff every 6 hours. She is also on latanoprost 1 drop to both eyes at bedtime, lisinopril/hydrochlorothiazide 20/12.5 mg once a day, Singulair 10 mg at bedtime and omeprazole 40 mg once a day. FINAL DISCHARGE DIAGNOSES: 1. Chest pain, atypical, acute myocardial infarction was ruled out. The patient has history of palpitation and event monitor. 2. Hypertension. 3. Hyperlipidemia. 4. Gastroparesis. 5. Questionable subacute thyroiditis that has resolved. 6. Bronchial asthma. 7. Fibromyalgia. Arrangement has been made for her to have an outpatient echocardiogram and ischemic workup. KARSON VIDAL MD DR: LD/krysten JOB#: [id number] / [id number]
[2020-01-15] MEDS ORDERED: PANTOPRAZOLE 40 MG TABLET. PO SCH (07:30)
== END 2020-01-14 14:50 | disposition home or self-care (01) | DRG 313 ==
LOC: ER 08:43 → 1 SOUTH 10:27 → ER 12:45 → OBSVTOIN 13:09
PROVIDERS: ADMIT Internal Medicine; ATTEND Internal Medicine
DX: R07.89 Other chest pain (principal); E78.00 Pure hypercholesterolemia, unspecified; E78.5 Hyperlipidemia, unspecified; I10 Essential (primary) hypertension; I45.10 Unspecified right bundle-branch block; J45.909 Unspecified asthma, uncomplicated; K21.9 Gastro-esophageal reflux disease without esophagitis; K31.84 Gastroparesis; M79.7 Fibromyalgia; F32.9 Major depressive disorder, single episode, unspecified; H40.9 Unspecified glaucoma; M19.90 Unspecified osteoarthritis, unspecified site; E05.90 Thyrotoxicosis, unspecified without thyrotoxic crisis or storm; Z90.49 Acquired absence of other specified parts of digestive tract; Z91.040 Latex allergy status; Z82.49 Family history of ischemic heart disease and other diseases of the circulatory system; Z83.3 Family history of diabetes mellitus; Z88.8 Allergy status to other drugs, medicaments and biological substances; Z90.710 Acquired absence of both cervix and uterus
CPT/HCPCS: 36415; 71045; 80053; 80061; 82553; 83690; 83735; 83880; 84439; 84443; 84481; 84484; 85025; 85379; 85610; 85730; 93005; 94640; 96361; 96374; G0378; G0379; J3010; 99285-25; J7030; J7613

== ENCOUNTER → 2020-01-28 | Outpatient (CLI) | payer BC ==
[2020-01-14 11:13] VITALS: BP 112/70
[~2020-01-28] MED LIST changes: +ASPI325T8 PO
--- NOTE | 2020-01-28 15:58 | RAD ---
EXAM: CT CHEST WITHOUT CONTRAST HISTORY: Pulmonary nodule COMPARISON: Chest radiograph 01/13/[address] chest 01/27/2014 TECHNIQUE: Helical CT of the chest performed without contrast. Coronal and sagittal reformats were o btained. One or more of the following individualized dose reduction techniques were utilized for this examinat ion: 1. Automated exposure control 2. Adjustment of the mA and/or kV according to patient size 3. Use of iterative reconstruction technique. FINDINGS: Thyroid gland and thoracic inlet: Thyroid gland is normal. No thoracic inlet lymphadenopathy. Heart and great vessels: Heart is normal in size. No pericardial effusion. The thoracic aorta is norm al in caliber. Mediastinum and adam: Multiple small mediastinal lymph nodes including a 1 cm short axis AP window ly mph node are unchanged from 2014. Lungs and pleura: There is no abnormality in the right lung due to correlate with the finding on ches t radiograph 01/13/2020, which was likely artifact. There is a new 4 mm pulmonary nodule in the left u pper lobe (image 117, series 2). New 3 mm subpleural nodule in the posterior medial right upper lobe (image 78, series 2). A few other scattered 2 to 3 mm pulmonary nodules are seen in the right lower l obe. Groundglass opacities in the lungs on CT from 2014 have resolved. Mild atelectasis in the left l ower lobe and inferior right middle lobe and lingula. The airways are clear. No pleural effusion. Chest wall and axillae: A loop recorder device the left chest wall is new. Multiple small bilateral a xillary lymph nodes are unchanged from 2014. Upper abdomen: There are surgical changes of cholecystectomy. The upper abdomen is otherwise unremark able. Bones: No acute osseous abnormality. IMPRESSION: 1. No CT correlation for the abnormality on chest radiograph from 03/15/2019. 2. Since CT chest 2013, there is a new 4 mm pulmonary nodule in the left upper lobe and a few new 2-3 mm pulmonary nodules in the right lung. In a high risk patient, optional twelve-month follow-up CT c ould be obtained to ensure stability. Electronically signed by: Deana Mckeon MD (01/28/2020 3:56 PM) [id number]
== END ==
LOC: CT 07:37
PROVIDERS: ATTEND Specialist
DX: R91.1 Solitary pulmonary nodule (principal)
CPT/HCPCS: 71250

== ENCOUNTER 2020-02-27 08:49 | Emergency (ER) | payer BC ==
[~2020-02-27] VITALS: Ht 154.9 cm; Wt 76.2 kg
[2020-02-27] MEDS ORDERED: ASPIRIN CHEWABLE 81 MG TABLET. PO ONE (09:15)
--- NOTE | 2020-02-27 09:20 | PHYS DOC ---
Past History Past Medical History: Asthma, Fibromyalgia, Glaucoma, High Cholesterol, Hypertension Additional Past Medical Histor: gastroparesis Past Surgical History: Cholecystectomy, Hysterectomy, Other Additional Past Surgical Histo: LEFT EYE, ORIF right leg Smoking: Non-smoker Alcohol Use: None Drug Use: None General Adult EDM: Chief Complaint: CHEST PAIN HPI: HPI: Patient is a 64-year-old female coming in with chest pain that she woke up with at 6 AM, 3 hours prior to arrival. Patient states the pain radiates to her arm. Says that chest pain is central and substernal and is like a heaviness, says the arm pain is sharp. Patient states recently she has been having cramping in her calves. Patient has a history of asthma and took a nebulizer treatment with some improvement. Denies any cough, fevers, lightheadedness, diaphoresis. No recent illness, vomiting, diarrhea. Denies any cardiac history of MS or stents, does state that she has a history of tachycardia on exertion and has a stress test planned for next month Review of Systems: Review of Systems: All other systems within normal limits except for as noted in the HPI Current Medications: Current Meds: Current Medications Medications (Trade) Dose Ordered Sig/Puja Start Time Stop Time Status Last Admin Dose Admin Aspirin (Aspirin Chewable) 324 mg 1X ONCE 02/27/20 09:15 02/27/20 09:16 UNV Allergies: Allergies: Allergies Coded Allergies Type Severity Reaction Last Updated Verified Arandtn-Ixz-Erx Reductase Inhibitor Allergy Intermediate "muscle pain, cramping, & weakness" 02/27/20 Yes latex Allergy Mild itching, redness 02/27/20 Yes morphine Adverse Reaction Mild vomiting 02/27/20 Yes Physical Exam: PE: Constitutional: Well developed, well nourished, no acute distress, non-toxic appearance. [] HENT: Normocephalic, atraumatic, bilateral external ears normal, nose normal. [] Eyes: PERRLA, conjunctiva normal, no discharge. [] Neck: No rigidity, supple, no stridor. [] Cardiovascular: Regular rate and rhythm, brisk cap refill [] Lungs & Thorax: Non labored symmetric respirations, no tachypnea or respiratory distress [] Abdomen: Soft, nondistended. Skin: Warm, dry, no erythema, no rash. [] Extremities: No deformities, range of motion grossly intact, no lower extremity edema, no calf tenderness [] Neurologic: Alert and oriented X 3, no focal deficits noted. [] Psychologic: Affect normal, judgement normal, mood normal. [] Current Patient Data: Vital Signs: Vital Signs Date Time Temp Pulse Resp B/P (MAP) Pulse Ox O2 Delivery O2 Flow Rate FiO2 02/27/20 08:56 98.1 90 18 133/86 (102) 99 EKG: EKG: Sinus rhythm, heart rate 85 bpm, no ST elevation or depression, T wave inversions in leads III, V1, V2. [] Radiology/Procedures: Radiology/Procedures: PROCEDURE: CHEST PA & LATERAL EXAMINATION: XR CHEST 2V CLINICAL HISTORY: Chest pain EXAM DATE/TIME: 02/27/2020 9:16 AM COMPARISON: 01/13/2020 FINDINGS: Lines, Tubes, and Devices: Implantable loop recorder in the subcutaneous soft tissues along the anterior left hemithorax. Cardiomediastinal Silhouette: Within normal limits. Lungs and Pleura: No evidence of focal airspace consolidation or pleural effusion. Pulmonary vasculature unremarkable. Bones and Soft Tissues: Degenerative changes of the thoracic spine. Right upper quadrant surgical clips. IMPRESSION: No evidence of acute cardiopulmonary abnormality or significant interval change.[] Heart Score: HEART Score for Chest Pain: HEART Score for Chest Pain Response (Comments) Value History Moderately Suspicious 1 ECG Nonspecific Repolarizatio 1 Age >45 - < 65 1 Risk Factors No Risk Factors 0 Troponin < Normal Limit 0 Total 3 Risk Factors: Risk Factors: DM, Current or recent (<one month) smoker, HTN, HLP, family history of CAD, obesity. Risk Scores: Score 0 - 3: 2.5% MACE over next 6 weeks - Discharge Home Score 4 - 6: 20.3% MACE over next 6 weeks - Admit for Clinical Observation Score 7 - 10: 72.7% MACE over next 6 weeks - Early Invasive Strategies Course & Med Decision Making: Course & Med Decision Making Pertinent Labs and Imaging studies reviewed. (See chart for details) [] Dragon Disclaimer: Dragon Disclaimer: This electronic medical record was generated, in whole or in part, using a voice recognition dictation system. Departure Departure: Impression: Primary Impression: Chest pain Disposition: 01 DC HOME SELF CARE/HOMELESS Condition: STABLE Referrals: DONNA ARANDA MD (PCP) Patient Instructions: Chest Pain (Nonspecific) LORIE GARNER MD Feb 27, 2020 09:20
[2020-02-27 09:37] LABS: BASO # 0.1 x10^3/uL (0.0-0.2); BASO % 1 % (0-3); EOS # 0.1 x10^3/uL (0.0-0.7); EOS % 3 % (0-3); HEMATOCRIT 36.6 % (36.0-47.0); HEMOGLOBIN 11.9 g/dL (12.0-15.5); LYMPH # 2.2 x10^3/uL (1.0-4.8); LYMPH % 42 % (24-48); MEAN CORPUSCULAR HEMOGLOBIN 28 pg (25-35); MEAN CORPUSCULAR HGB CONC 33 g/dL (31-37); MEAN CORPUSCULAR VOLUME 86 fL (79-100); MONO # 0.6 x10^3/uL (0.0-1.1); MONO % 12 % (0-9); NEUT # 2.1 x10^3uL (1.8-7.7); NEUT % 42 % (31-73); PLATELET COUNT 280 x10^3/uL (140-400); RED BLOOD COUNT 4.25 x10^6/uL (3.50-5.40); RED CELL DISTRIBUTION WIDTH 13.7 % (11.5-14.5); WHITE BLOOD COUNT 5.1 x10^3/uL (4.0-11.0)
--- NOTE | 2020-02-27 09:39 | EKG ---
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
--- NOTE | 2020-02-27 09:41 | RAD ---
EXAMINATION: XR CHEST 2V CLINICAL HISTORY: Chest pain EXAM DATE/TIME: 02/27/2020 9:16 AM COMPARISON: 01/13/2020 FINDINGS: Lines, Tubes, and Devices: Implantable loop recorder in the subcutaneous soft tissues along the anter ior left hemithorax. Cardiomediastinal Silhouette: Within normal limits. Lungs and Pleura: No evidence of focal airspace consolidation or pleural effusion. Pulmonary vasculat ure unremarkable. Bones and Soft Tissues: Degenerative changes of the thoracic spine. Right upper quadrant surgical cli ps. IMPRESSION: No evidence of acute cardiopulmonary abnormality or significant interval change. Electronically signed by: Efe Graham DO (02/27/2020 9:38 AM) [id number]
[2020-02-27 09:42] LABS: ANION GAP 6 (6-14); BLOOD UREA NITROGEN 16 mg/dL (7-20); BUN/CREATININE RATIO 18 (6-20); CALCIUM 9.2 mg/dL (8.5-10.1); CARBON DIOXIDE 30 mmol/L (21-32); CHLORIDE 103 mmol/L (98-107); CREATININE 0.9 mg/dL (0.6-1.0); GFR 76.3; GLUCOSE 96 mg/dL (70-99); POTASSIUM 3.7 mmol/L (3.5-5.1); SODIUM 139 mmol/L (136-145)
[2020-02-27 09:54] LABS: ALBUMIN 3.7 g/dL (3.4-5.0); ALK PHOS 78 U/L (46-116); ALT (SGPT) 26 U/L (14-59); AST (SGOT) 16 U/L (15-37); LIPASE 131 U/L (73-393); MAGNESIUM 2.3 mg/dL (1.8-2.4); TOTAL PROTEIN 7.3 g/dL (6.4-8.2)
[2020-02-27 10:02] LABS: BILIRUBIN,URINE NEG (NEG); CLARITY,URINE CLEAR; COLOR,URINE YELLOW; GLUCOSE,URINE NEG (NEG)
[2020-02-27 10:03] LABS: BACTERIA,URINE 0 /HPF (0-FEW); NITRITE,URINE NEG (NEG); RBC,URINE 0 /HPF (0-2); SQUAMOUS EPITHELIAL CELL,UR OCC /LPF; UROBILINOGEN,URINE 0.2 mg/dL (0.2 mg/dL); WBC,URINE 0 /HPF (0-4)
[2020-02-27 10:09] LABS: TOTAL BILIRUBIN < 0.1 mg/dL (0.2-1.0)
[2020-02-27 12:30] VITALS: BP 120/72
== END 2020-02-27 12:59 | disposition home or self-care (01) ==
LOC: ER 08:49
DX: R07.2 Precordial pain (principal); J45.909 Unspecified asthma, uncomplicated; M79.7 Fibromyalgia; E78.00 Pure hypercholesterolemia, unspecified; I10 Essential (primary) hypertension; Z88.8 Allergy status to other drugs, medicaments and biological substances; Z88.5 Allergy status to narcotic agent; Z91.040 Latex allergy status
CPT/HCPCS: 36415; 71046; 80053; 81001; 83690; 83735; 83880; 84484; 85025; 85379; 93005; 99285

== ENCOUNTER → 2020-03-22 | Outpatient (CLI) | payer BC ==
[2020-02-27 12:30] VITALS: BP 120/72
[~2020-03-22] MED LIST changes: +REGADENOSON 0.4 MG/5 ML DISP.SYRIN. IV ONE
--- NOTE | 2020-03-22 12:07 | CARD ---
MR#: [id number] Date of Study: 03/22/2020 Ordering Physician: JULIA FAULKNER, Referring Physician: JULIA FAULKNER, Tech: Shyanne Coburn RUST APPROVED REPORT EXAM: Two-dimensional and M-mode echocardiogram with Doppler and color Doppler. Other Information Quality : AverageHR: 75bpm INDICATION Chest Pain RISK FACTORS Hypertension Hyperlipidemia 2D DIMENSIONS RVDd2.9 (2.9-3.5cm)Left Atrium(2D)2.2 (1.6-4.0cm) IVSd1.0 (0.7-1.1cm)Aortic Root(2D)2.7 (2.0-3.7cm) LVDd4.1 (3.9-5.9cm)LVOT Diameter2.0 (1.8-2.4cm) PWd0.9 (0.7-1.1cm)LVDs2.1 (2.5-4.0cm) FS (%) 48.0 %SV58.6 ml LVEF(%)79.9 (>50%) Aortic Valve AoV Peak Kevin.171.6cm/sAoV VTI34.8cm AO Peak GR.12.1mmHgLVOT Peak Kevin.120.6cm/s LVOT VTI 24.73cmAO Mean GR.7mmHg OLLIE (VMAX)2.53ih6VKR (VTI)2.22cm2 Mitral Valve MV E Wbppajqk62.3cm/sMV E Peak Gr.2mmHg MV DECEL DNRT200lrKA A Svfzbrqm08.2cm/s E/A Ratio1.1 Pulmonary Valve PV Peak Jykxhnbo38.4cm/sPV Peak Grad.3mmHg Tricuspid Valve TR P. Gkjrhexe150pp/sRAP MFERBRYX6jrCj TR Peak Gr.83qvJcDIYF55rgGw LEFT VENTRICLE The left ventricle is normal size. There is normal left ventricular wall thickness. The left ventricu lar systolic function is normal. The Ejection Fraction is 65%. There is normal LV segmental wall didier on. Transmitral Doppler flow pattern is Grade I-abnormal relaxation pattern. RIGHT VENTRICLE The right ventricle is normal size. There is normal right ventricular wall thickness. The right ventr icular systolic function is normal. ATRIA The left atrium size is normal. The right atrium size is normal. The interatrial septum is intact wit h no evidence for an atrial septal defect or patent foramen ovale as noted on 2-D or Doppler imaging. AORTIC VALVE The aortic valve is thickened but opens well. Doppler and Color Flow revealed no significant aortic r egurgitation. There is no significant aortic valvular stenosis. Calculated aortic valve area is 2.3 c m2 with maximum pressure gradient of 12 mmHg and mean pressure gradient of 6 mmHg. MITRAL VALVE The mitral valve is normal in structure and function. There is no evidence of mitral valve prolapse. There is no mitral valve stenosis. Doppler and Color Flow revealed no mitral valve regurgitation note d. TRICUSPID VALVE The tricuspid valve is normal in structure and function. Doppler and Color Flow revealed trace tricus pid regurgitation with an estimated PAP of 28 mmHg. There is no tricuspid valve stenosis. PULMONIC VALVE The pulmonary valve is normal in structure and function. Doppler and Color Flow revealed trace pulmon ic valvular regurgitation. GREAT VESSELS The aortic root is normal in size. The aortic root is normal in size. The ascending aorta is normal i n size. The IVC is normal in size and collapses >50% with inspiration. PERICARDIAL EFFUSION There is no evidence of significant pericardial effusion. Critical Notification Critical Value: No <Conclusion> The left ventricular systolic function is normal. The Ejection Fraction is 65%. There is normal LV segmental wall motion. Trace tricuspid regurgitation with an estimated PAP of 28 mmHg. There is no evidence of significant pericardial effusion. Signed by : Julia Faulkner, Electronically Approved : 03/22/2020 12:06:31
--- NOTE | 2020-03-22 12:15 | RAD ---
MR#: [id number] Date of Study: 03/22/2020 Ordering Physician: JULIA FAULKNER, Referring Physician: ZULEYKA LLOYD Tech: RT Oriana (R) (N) APPROVED REPORT Test Type: Exercise Stress Nurse/Tech: RT Oriana (R) (N)/Alcira Katz Test Indications: Chest Pain Cardiac History: No known cardiac Medications: See EHR Medical History: See EHR Resting Heart Rate: 73 bpm Resting Blood Pressure: 143/74mmHg Pretest Chest Pain: None Stress Symptoms Dyspnea POST EXERCISE Reason for Termination: Reached target heart rate Target HR: 132 Max HR: 138 bpm 100% of Maximum Predicted HR: 132 bpm Exercise duration: 5 min:sec, 2 Stage Exercise capacity: 7METs Max Blood Pressure: 186/86mmHg Blood Pressure response to exercise: Normal blood pressure response during stress. Heart Rate response to exercise: Increase Chest Pain: No. Arrhythmia: No. ST Change: Yes. INTERPRETATION Stress EKG Conclusion: Baseline EKG showed sinus rhythm. No ischemic changes at peak stress. No arr hythmias. Imaging Protocol IMAGE PROTOCOL: Rest Tc-99m/stress Tc-99m 1 day Rest: Stress: Viability: Radiopharm.Tc99m GjwcefgrfZn74r Sestamibi Dose10.5mCi 33mCi Duration 15min. 15min. Img Date 03/22/2020 03/22/2020 Inj-Img Cnkh27bvj. 60min. Rest Admin Site:IV - Right HandAdministrator: RT Oriana (R)(N) Stress Admin Site: IV - Right HandAdministrator: RT Oriana (R)(N) STRESS DATA End Diast. Vol.46.0mlAv. Heart Rate81.0bpm End Syst. Vol.2.0mlCO Index BSA0.0L/min Myocardial Mass91.0gEject. Dohyzqtj79.0% Stress Rates Pk. Fill Rate3.03EDV/secLVtime Pk. Fill 78.82msec Pk. Empty Rate4.48ESV/secLVtime Pk. Ovlwa514.67msec 1/3 Pk. Fill2.23EDV/sec Stress Scores Regional WT0.00Summed WT0.00 Regional WM0.00Summed WM0.00 Study quality was good. Left Ventricular size was Normal at Rest and Stress. Lung uptake was . Left Ventricular ejection fraction is 85%. The rest and stress images show normal perfusion, normal contraction and thickening. LV Perf. Quant 17 Seg. SSS0.00 17 Seg. SRS0.00 17 Seg. SDS0.00 Stress Defect Extent (% LAD)0.00Rest Defect Extent (% LAD)0.00Rev. Defect Extent (% LAD)0.00 Stress Defect Extent (% LCX) 0.00Rest Defect Extent (% LCX)0.00Rev. Defect Extent (% LCX)0.00 Stress Defect Extent (% RCA)0.00Rest Defect Extent (% RCA)0.00Rev. Defect Extent (% RCA)0.00 Stress Defect Extent (% JOSE)0.00Rest Defect Extent (% JOSE)0.00Rev. Defect Extent (% JOSE)0.00 Conclusion 1. Treadmill exercise cardioisotope stress test did not show any evidence of ischemia or infarct. 2. Normal left ventricular systolic function with ejection fraction calculated at 85%. 3. Low risk for cardiac events. Signed by : Julia Faulkner, Electronically Approved : 03/22/2020 12:14:46
== END ==
LOC: NM 07:48
PROVIDERS: ATTEND Internal Medicine Cardiovascular Disease
DX: I10 Essential (primary) hypertension (principal); R07.9 Chest pain, unspecified; E78.5 Hyperlipidemia, unspecified
CPT/HCPCS: 78452; 93017; 93306; A9500; 96376

== ENCOUNTER 2020-08-12 13:41 | Emergency (ER) | payer BC, MEDICAID ==
[~2020-08-12] VITALS: Ht 154.9 cm; Wt 76.2 kg
[~2020-08-12 13:41] MED LIST changes: -OMEP40CA45 PO; +OMEP40CA7 PO; -REGADENOSON 0.4 MG/5 ML DISP.SYRIN. IV ONE
--- NOTE | 2020-08-12 14:51 | PHYS DOC ---
Past History Past Medical History: Asthma, Fibromyalgia, Glaucoma, High Cholesterol, Hypertension Additional Past Medical Histor: gastroparesis, DEGENERATIVE DISC DISEASE (TARUN DEL RIO APRN) Past Surgical History: Cholecystectomy, Hysterectomy, Other Additional Past Surgical Histo: LEFT EYE, ORIF right leg (TARUN DEL RIO APRN) Smoking: Non-smoker Alcohol Use: None Drug Use: None (TARUN DEL RIO APRN) General Adult EDM: Chief Complaint: NAUSEA/VOMITING/DIARRHEA HPI: HPI: Patient is a 65-year-old female who presents with fever, nausea, and diarrhea. Patient states that she was treated for an ear infection and placed on amoxicillin. Patient states the next day she started having diarrhea. Patient denies any vomiting. Denies abdominal pain. (TARUN DEL RIO APRN) Review of Systems: Review of Systems: Constitutional: Reports fever and chills Eyes: Denies change in visual acuity HENT: Denies nasal congestion or sore throat Respiratory: Denies cough or shortness of breath Cardiovascular: Denies chest pain or edema GI: Denies abdominal pain and vomiting. Reports nausea and diarrhea : Denies dysuria Musculoskeletal: Denies back pain or joint pain Integument: Denies rash Neurologic: Reports headache, denies focal weakness or sensory changes Endocrine: Denies polyuria or polydipsia Lymphatic: Denies swollen glands Psychiatric: Denies depression or anxiety (TARUN DEL RIO APRN) Current Medications: Current Meds: Current Medications Medications (Trade) Dose Ordered Sig/Puja Start Time Stop Time Status Last Admin Dose Admin Ibuprofen (Motrin) 600 mg 1X ONCE 08/12/20 14:30 08/12/20 14:41 DC Ondansetron HCl (Zofran) 4 mg 1X ONCE 08/12/20 14:30 08/12/20 14:41 DC Sodium Chloride 1,000 ml @ 1,000 mls/hr 1X ONCE 08/12/20 14:30 08/12/20 15:29 (TARUN DEL RIO APRN) Allergies: Allergies: Allergies Coded Allergies Type Severity Reaction Last Updated Verified Wqzwclb-Snh-Srp Reductase Inhibitor Allergy Intermediate "muscle pain, cramping, & weakness" 02/27/20 Yes latex Allergy Mild itching, redness 02/27/20 Yes morphine Adverse Reaction Mild vomiting 02/27/20 Yes (TARUN DEL RIO APRN) Physical Exam: PE: Constitutional: Well developed, well nourished, no acute distress, non-toxic appearance. [] HENT: Normocephalic, atraumatic, bilateral external ears normal, oropharynx moist, no oral exudates, nose normal. [] Eyes: PERRLA, EOMI, conjunctiva normal, no discharge. [] Neck: Normal range of motion, no tenderness, supple, no stridor. [] Cardiovascular:Heart rate regular rhythm, no murmur [] Lungs & Thorax: Bilateral breath sounds clear to auscultation [] Abdomen: Bowel sounds normal, soft, no tenderness, no masses, no pulsatile masses. [] Skin: Warm, dry, no erythema, no rash. [] Back: No tenderness, no CVA tenderness. [] Extremities: No tenderness, no cyanosis, no clubbing, ROM intact, no edema. [] Neurologic: Alert and oriented X 3, normal motor function, normal sensory function, no focal deficits noted. [] Psychologic: Affect normal, judgement normal, mood normal. [] (TARUN DEL RIO APRN) Current Patient Data: Vital Signs: Vital Signs Date Time Temp Pulse Resp B/P (MAP) Pulse Ox O2 Delivery O2 Flow Rate FiO2 08/12/20 13:55 99.6 81 18 126/72 96 Room Air (TARUN DEL RIO APRN) EKG: EKG: Sinus rhythm. Heart rate 83 bpm. [] (TARUN DEL RIO APRN) Radiology/Procedures: Radiology/Procedures: [] (TARUN DEL RIO APRN) Heart Score: C/O Chest Pain: No Risk Factors: Risk Factors: DM, Current or recent (<one month) smoker, HTN, HLP, family history of CAD, obesity. Risk Scores: Score 0 - 3: 2.5% MACE over next 6 weeks - Discharge Home Score 4 - 6: 20.3% MACE over next 6 weeks - Admit for Clinical Observation Score 7 - 10: 72.7% MACE over next 6 weeks - Early Invasive Strategies (TARUN DEL RIO APRN) Course & Med Decision Making: Course & Med Decision Making Pertinent Labs and Imaging studies reviewed. (See chart for details) [] 65-year-old female presents with fever, nausea and diarrhea. Patient denies abdominal pain or vomiting. Patient given Motrin for fever. All labs are unremarkable. UA is negative for infection. Discussed results with patient. Explained to patient that diarrhea may be coming from recent antibiotic. Patient is requesting antibiotic to be changed. Patient states that she has 4 days left of Augmentin. Patient's antibiotics switched to amoxicillin. Instructed patient to call PCP on Saturday to make a follow-up appointment. Patient is hemodynamically stable. Patient is appreciative and okay with discharge plan. (TARUN DEL RIO APRN) Course & Med Decision Making I oversaw on the above date of service of this patient. This patient was evaluated, examined, treated, and dispositioned from the emergency department by the mid-level practitioner. Although I was working at the time and available for consultation, no assistance was requested and I did not see or immediately direct the care of this patient. I reviewed note and agree to findings, plan of care, and disposition as stated. Electronically signed, Prashant Marquez DO (PRASHANT MARQUEZ DO) Nayeli Disclaimer: Nayeli Disclaimer: This electronic medical record was generated, in whole or in part, using a voice recognition dictation system. (TARUN DEL RIO APRN) Departure Departure: Impression: Primary Impression: Nausea Additional Impression: Diarrhea Qualified Codes: R19.7 - Diarrhea, unspecified Disposition: HOME / SELF CARE / HOMELESS Condition: STABLE Referrals: DONNA ARANDA MD (PCP) Patient Instructions: Diet for Diarrhea, Adult Additional Instructions: You were seen in the emergency room for nausea and diarrhea. All of your labs were unremarkable. You most likely your having a reaction from the Augmentin. I switched your antibiotic to amoxicillin. Please call your PCP on Saturday make a follow-up appointment. Try and make sure you are drinking plenty of fluids. I am also giving a prescription for Zofran that will help with nausea. You can take ibuprofen and Tylenol at home for discomfort or fever. Return to the emergency room with worsening symptoms or concerns EMERGENCY DEPARTMENT GENERAL DISCHARGE INSTRUCTIONS Thank you for coming to [facility] (ED) today and trusting us with you care. We trust that you had a positivie experience in our Emergency Department. If you wish to speak to the department management, you may call the director at [phone]. YOUR FOLLOW UP INSTRUCTIONS ARE FOLLOWS: 1. Do you have a private Doctor? If you do not have a private doctor, please ask for a resource list of physicians or clinics that may be able to assist you with follow up care. 2. The Emergency Physician has interpreted your x-rays. The X-Ray specialist will also review them. If there is a change in the findings, you will be notified in 48 hours when at all possible. 3. A lab test or culture has been done, your results will be reviewed and you will be notified if you need a change in treatment. ADDITIONAL INSTRUCTIONS AND INFORMATION: 1. Your care today has been supervised by a physician who is specially trained in emergency care. Many problems require more than one evaluation for a complete diagnosis and treatment. We recommend that you schedule your follow up appointment as recommended to ensure complete treatment of you illness or injury. If you are unable to obtain follow up care and continue to have a problem, or if your condition worsens, we recommend that you return to the ED. 2. We are not able to safely determine your condition over the phone nor are we able to give sound medical advice over the phone. For these safety reasons, if you call for medical advice we will ask you to come to the ED for further evaluation. 3. If you have any questions regarding these discharge instructions please call the ED at [phone]. SAFETY INFORMATION: In the interest of safety, wellness, and injury prevention; we encourage you to wear your sealbelt, if you smoke; quite smoking, and we encourage family to use a protective helmet for bicycling and other sporting events that present an increased risk for head injury. IF YOUR SYMPTOMS WORSEN OR NEW SYMPTOMS DEVELOP, OR YOU HAVE CONCERNS ABOUT YOUR CONDITION; OR IF YOUR CONDITION WORSENS WHILE YOU ARE WAITING FOR YOUR FOLLOW UP APPOINTMENT; EITHER CONTACT YOUR PRIMARY CARE DOCTOR, THE PHYSICIAN WHOSE NAME AND NUMBER YOU WERE GIVEN, OR RETURN TO THE ED IMMEDIATELY. Scripts Ondansetron Hcl (ZOFRAN) 4 Mg Tablet 4 MG PO TID PRN PRN for NAUSEA, #9 TAB Prov: TARUN DEL RIO APRN 08/12/20 Amoxicillin (AMOXICILLIN) 500 Mg Capsule 1 CAP PO BID for infection for 4 Days, #8 CAP Prov: TARUN DEL RIO APRN 08/12/20 TARUN DEL RIO APRN Aug 12, 2020 14:51 PRASHANT MARQUEZ DO Aug 14, 2020 08:56
[2020-08-12] MEDS: IV NORMAL SALINE 1,000ML 1,000 ML IV ONE (15:02)
[2020-08-12] MEDS: IBUPROFEN 600 MG TABLET. PO ONE (15:03)
[2020-08-12] MEDS: ONDANSETRON PF 4 MG/2 ML VIAL. IVP ONE (15:03)
[2020-08-12 15:09] LABS: BASO # 0.1 x10^3/uL (0.0-0.2); BASO % 1 % (0-3); EOS # 0.1 x10^3/uL (0.0-0.7); EOS % 1 % (0-3); HEMOGLOBIN 10.2 g/dL (12.0-15.5); LYMPH # 1.6 x10^3/uL (1.0-4.8); LYMPH % 23 % (24-48); MEAN CORPUSCULAR HEMOGLOBIN 29 pg (25-35); MEAN CORPUSCULAR HGB CONC 34 g/dL (31-37); MEAN CORPUSCULAR VOLUME 86 fL (79-100); MONO # 0.8 x10^3/uL (0.0-1.1); MONO % 12 % (0-9); NEUT # 4.3 x10^3uL (1.8-7.7); NEUT % 63 % (31-73); PLATELET COUNT 324 x10^3/uL (140-400); RED CELL DISTRIBUTION WIDTH 13.6 % (11.5-14.5); WHITE BLOOD COUNT 6.9 x10^3/uL (4.0-11.0)
--- NOTE | 2020-08-12 15:25 | EKG ---
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
[2020-08-12 15:34] LABS: CALCIUM 8.3 mg/dL (8.5-10.1); GFR 67.3; POTASSIUM 4.1 mmol/L (3.5-5.1)
[2020-08-12 15:40] LABS: ALBUMIN 3.3 g/dL (3.4-5.0); ALBUMIN/GLOBULIN RATIO 0.8 (1.0-1.7); TOTAL BILIRUBIN 0.3 mg/dL (0.2-1.0); TOTAL PROTEIN 7.6 g/dL (6.4-8.2)
[2020-08-12 16:18] LABS: BILIRUBIN,URINE NEG (NEG); CLARITY,URINE CLEAR; COLOR,URINE YELLOW; GLUCOSE,URINE NEG (NEG); NITRITE,URINE NEG (NEG); UROBILINOGEN,URINE 0.2 mg/dL (0.2 mg/dL)
[2020-08-12 16:27] LABS: BACTERIA,URINE FEW /HPF (0-FEW); HYALINE CASTS, URINE FEW /HPF; SQUAMOUS EPITHELIAL CELL,UR FEW /LPF; YEAST,URINE PRESENT /HPF
[2020-08-12 18:00] VITALS: BP 111/65
[2020-08-12] MEDS ORDERED: AMOX500C PO (18:00)
[2020-08-12] MEDS ORDERED: ONDA4TAB7 PO (18:00)
== END 2020-08-12 18:44 | disposition home or self-care (01) ==
LOC: ER 13:41
DX: R19.7 Diarrhea, unspecified (principal); R50.9 Fever, unspecified; J45.909 Unspecified asthma, uncomplicated; E78.5 Hyperlipidemia, unspecified; I10 Essential (primary) hypertension; Z90.49 Acquired absence of other specified parts of digestive tract; Z91.040 Latex allergy status; Z88.6 Allergy status to analgesic agent; Z90.710 Acquired absence of both cervix and uterus
CPT/HCPCS: 36415; 80053; 81001; 83690; 85025; 93005; 96361; 96374; 99285; J2405; J7030

== ENCOUNTER → 2020-12-05 | Outpatient (CLI) | payer MEDICAID ==
[~2020-12-05] MED LIST changes: +AMOX500C PO; -CYCL-331 PO; +CYCL10TA19 PO; -DOXY100C2 PO; +DOXY100C3 PO; +IOHEXOL 240 MG/ML 50ML VIAL. PO ONE; +IOHEXOL 300 MG/ML 75 ML VIAL. IV ONE; +ONDA4TAB7 PO
[2020-12-05 12:14] LABS: CREATININE 0.9 mg/dL (0.6-1.0)
--- NOTE | 2020-12-05 13:08 | RAD ---
INDICATION: Abdomen pain COMPARISON: None. TECHNIQUE: Axial CT images were obtained through the abdomen and pelvis with intravenous contrast. One or more of the following individualized dose reduction techniques were utilized for this examinat ion: 1. Automated exposure control; 2. Adjustment of the mA and/or kV according to patient size; 3 . Use of iterative reconstruction technique. FINDINGS: Scarring or atelectasis lung bases. Vascular: Multifocal calcific atherosclerosis. Hepatobiliary: Postcholecystectomy changes. Mild prominence of the bile ducts which is commonly seen postoperatively. Pancreas: No peripancreatic edema. Spleen: Spleen unremarkable. Renal/Bladder: Mild prominence of right greater than left extrarenal pelvis. No radiopaque obstructiv e ureter stone is seen. Calcification is seen adjacent to the right ureter likely within a vein. Chon tional phleboliths in the pelvis. Gastrointestinal: Colonic diverticulosis. No periappendiceal inflammatory changes. No dilated loops o f bowel to suggest obstruction. Degenerative changes of spine with multilevel central canal and neural foraminal stenosis. Grade 1 anterolisthesis of L4 on 5. IMPRESSION: * No evidence of bowel obstruction or appendicitis. * Colonic diverticulosis. Electronically signed by: Kobi Abdalla MD (12/05/2020 1:06 PM) [id number]
== END ==
LOC: CT 11:03
PROVIDERS: ATTEND Physician Assistant
DX: K57.30 Diverticulosis of large intestine without perforation or abscess without bleeding (principal); N30.01 Acute cystitis with hematuria; I70.90 Unspecified atherosclerosis; I87.8 Other specified disorders of veins; M48.061 Spinal stenosis, lumbar region without neurogenic claudication; M47.816 Spondylosis without myelopathy or radiculopathy, lumbar region; M43.16 Spondylolisthesis, lumbar region; Z90.49 Acquired absence of other specified parts of digestive tract
CPT/HCPCS: 36415; 74177; 82565; 84520; Q9967

== ENCOUNTER → 2021-04-05 | Outpatient (CLI) | payer MEDICAID ==
[~2021-04-05] MED LIST changes: -IOHEXOL 240 MG/ML 50ML VIAL. PO ONE; -IOHEXOL 300 MG/ML 75 ML VIAL. IV ONE
--- NOTE | 2021-04-05 09:56 | RAD ---
XR ABDOMEN 1V 04/05/2021 Reason: / Spl. Instructions: ABD. PAIN-UPPER LEFT MIDLINE, NAUSEA, X A FEW DAYS Comparison: None Technique: Supine radiographs of the abdomen Findings: Surgical clips in right upper quadrant likely cholecystectomy. There are no air-filled dilated loops of small and large intestine. Mild stool burden:. No suspicious calcifications. Mild degenerative agusto nges of the lower lumbar spine. Rounded calcifications over the pelvis likely phleboliths. Impression: Nonspecific nonobstructive bowel gas pattern. Electronically signed by: Wilian Alonso (04/05/2021 9:54 AM) [id number]
== END ==
LOC: RAD 08:26
PROVIDERS: ATTEND Specialist
DX: R10.84 Generalized abdominal pain (principal); M47.816 Spondylosis without myelopathy or radiculopathy, lumbar region; Z98.890 Other specified postprocedural states
CPT/HCPCS: 74018

== ENCOUNTER → 2021-04-12 | Outpatient (CLI) | payer MEDICAID, MEDICARE ==
--- NOTE | 2021-04-12 15:34 | RAD ---
CT ABDOMEN+PELVIS WO History: Hematuria. Comparison: CT abdomen and pelvis 12/05/2020 Technique: CT of the abdomen and pelvis without contrast. Findings: The lung bases are clear. Visualized heart is unremarkable. The liver is normal. The gallbladder is surgically absent. The pancreas, spleen and adrenal glands ar e unremarkable. No nephrolithiasis, hydronephrosis or renal masses identified. No perinephric adipose stranding. No evidence of ureterolithiasis. The bladder is unremarkable. Status post hysterectomy. Stomach and small bowel are unremarkable. Normal appendix. No pericolonic inflammatory changes. Mild sigmoid diverticulosis. No intra-abdominal free air or free fluid. No adenopathy. The soft tissues ar e unremarkable. 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 No acute osseous abnormalities. Impression: 1. No acute findings in the abdomen and pelvis. No hydronephrosis, nephrolithiasis or perinephric fa t stranding. Consider contrasted enhanced CT urogram for further evaluation of hematuria. ------ Exposure: One or more of the following individualized dose reduction techniques were utilized for thi s examination: 1. Automated exposure control 2. Adjustment of the mA and/or kV according to patient size 3. Use of iterative reconstruction technique. Electronically signed by: Helder Ramesh MD (04/12/2021 3:31 PM) [id number]
== END ==
LOC: CT 10:54
PROVIDERS: ATTEND Specialist
DX: K57.30 Diverticulosis of large intestine without perforation or abscess without bleeding (principal); M47.816 Spondylosis without myelopathy or radiculopathy, lumbar region; N30.01 Acute cystitis with hematuria; Z90.49 Acquired absence of other specified parts of digestive tract
CPT/HCPCS: 74176